=== PATIENT | male | born 1990 | race Caucasian/White ===

== ENCOUNTER 2020-02-19 21:45 | Inpatient (IN) ==
[2020-02-20] MEDS ORDERED: OLANZapine 5 MG TAB.RAPDIS PO SCH (00:15)
[2020-02-20 16:18] LABS: Basophils # 0.1 K/mcL (0.0-0.2); Hematocrit 39.9 % (37.5-50.1); Hemoglobin 12.9 g/dL (12.9-16.9); Mean Corpuscular HGB Conc 32.3 g/dL (31.6-35.5); Mean Corpuscular Hemoglobin 29.6 pg (28.0-33.3); Mean Corpuscular Volume 91.5 fL (83.0-100.0); Mean Platelet Volume 9.4 fL (9.4-12.4); Platelet Count 289 K/mcL (140-400); Red Blood Count 4.36 M/mcL (4.19-5.50); White Blood Count 6.5 K/mcL (4.3-11.1)
[2020-02-20 16:49] LABS: Eosinophils # 0.3 K/mcL (0.0-0.6); Lymphocytes # 2.2 K/mcL (0.6-4.6); Monocytes # 0.4 K/mcL (0.0-1.3)
[2020-02-20 16:50] LABS: Platelet Estimate Normal (Normal); Reactive Lymphocytes Present (Not Present)
[2020-02-20] MEDS ORDERED: Naloxone 0.4 MG/ML INJ IVP PRN (17:36)
[2020-02-20] MEDS ORDERED: Acetaminophen 325 MG TABLET PO PRN (17:40)
[2020-02-20] MEDS ORDERED: risperiDONE 1 MG TABLET PO SCH (21:00)
[2020-02-21] MEDS ORDERED: OLANZapine 10 MG VIAL IM ONE (05:41)
[2020-02-21] MEDS ORDERED: risperiDONE 1 MG TABLET PO SCH (09:00)
[2020-02-21 09:40] LABS: Basophils # 0.1 K/mcL (0.0-0.2); Basophils % 0.6 %; Eosinophils # 0.1 K/mcL (0.0-0.6); Eosinophils % 1.2 %; Hematocrit 36.6 % (37.5-50.1); Hemoglobin 11.9 g/dL (12.9-16.9); Immature Granulocytes % 2.4 % (0-4); Lymphocytes # 2.4 K/mcL (0.6-4.6); Mean Corpuscular HGB Conc 32.5 g/dL (31.6-35.5); Mean Corpuscular Hemoglobin 29.8 pg (28.0-33.3); Mean Corpuscular Volume 91.5 fL (83.0-100.0); Mean Platelet Volume 9.3 fL (9.4-12.4); Monocytes # 0.9 K/mcL (0.0-1.3); Neutrophils # 4.2 K/mcL (1.6-8.9); Platelet Count 259 K/mcL (140-400); Red Cell Distribution Width 14.6 % (11.5-14.5); Segmented Neutrophils % 53.8 %; White Blood Count 7.8 K/mcL (4.3-11.1)
[2020-02-21 09:54] LABS: BUN/Creatinine Ratio 25 (6-26); Blood Urea Nitrogen 19 mg/dL (6-20); Calcium 9.1 mg/dL (8.6-10.3); Carbon Dioxide 25 mEq/L (23-29); Chloride 104 mEq/L (98-107); Glucose 100 mg/dL (70-105); Osmolality,Calculated 284 (280-300); Sodium 136 mEq/L (136-145); eGFR For African Americans > 60 (> 60); eGFR For Non-African Americans > 60 (> 60)
[2020-02-21] MEDS ORDERED: OLANZapine 10 MG TAB.RAPDIS PO PRN (19:45)
[2020-02-21] MEDS ORDERED: OLANZapine 10 MG VIAL IM PRN (19:45)
[2020-02-21] MEDS: risperiDONE 1 MG TABLET PO SCH (20:51)
[2020-02-22] MEDS ORDERED: Ibuprofen 400 MG TABLET PO ONE (04:25)
[2020-02-22] MEDS: risperiDONE 1 MG TABLET PO SCH (08:29)
[2020-02-22 08:41] VITALS: BP 115/71
== END 2020-02-22 13:09 | disposition left against medical advice (07) | DRG 137 ==
LOC: CDU 21:45 → EMEROOARM 21:45 → CDU 02-20 20:15 → SUATTDRO 02-20 22:12 → CDU 02-21 05:34
PROVIDERS: ADMIT Internal Medicine; ATTEND Internal Medicine